=== PATIENT | female | born 1970 | race African-American/Black ===

== ENCOUNTER 2016-09-10 12:14 | Emergency (ER) | payer OTHER ==
[2016-09-10 12:18] VITALS: BP 118/79; PULSE 79; TEMP 98.2; BMI 33.0
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
== END 2016-09-10 14:49 | disposition home or self-care (01) ==
LOC: JERFT 12:14
DX: S49.82XA Other specified injuries of left shoulder and upper arm, initial encounter (principal); W03.XXXA Other fall on same level due to collision with another person, initial encounter; Y93.F9 Activity, other caregiving; Y92.118 Other place in children's home and orphanage as the place of occurrence of the external cause; Y99.0 Civilian activity done for income or pay
CPT/HCPCS: 73030-TC-LT; 84703; 99281-25

== ENCOUNTER 2017-02-13 19:40 | Emergency (ER) | payer OTHER ==
[2017-02-13 19:47] VITALS: BP 113/76; PULSE 88; TEMP 98.9; BMI 34.1
[2017-02-13] MEDS ORDERED: ALBUTEROL SO4 2.5/IPRATROPIUM 0.5 INH SOL 3 ML VIAL.NEB. NEB ONE ×2 (20:35→20:44)
--- NOTE | 2017-02-13 20:35 | PDOC ---
History of Present Illness - General History Source: Patient Exam Limitations: No Limitations - History of Present Illness Initial Comments: 02/13/17 21:18 Patient is a 46 year old female with a significant past medical history of diabetes, HTN, who presents to the ED with complaints of coughing that began 2 weeks ago. Patient reports coughing began two weeks ago and has subsided slightly. She states that this is the first time experiencing this in 5 years. She reports using her asthma pump with benylin with minimal relief. Patient reports albuterol offers slightly more relief but still minimal. She reports productive cough at night with production of phlegm but unaware of the coloration of the phlegm. Patient reports intermittent episodes of chest pain and SOB secondary to coughing that intensifies when walking. Denies abdominal pain. Denies fevers, chills. Denies contact with sick individuals. Denies insulin. Denies any other symptoms. Allergies Social history: No smoking. No alcohol. No illicit drugs. Surgery History: Cholecystectomy PMD: Dr. Plascencia <Medardo Ramírez - Last Filed: 02/13/17 21:18> <Radha Rojas - Last Filed: 02/13/17 22:39> - General Chief Complaint: Respiratory Stated Complaint: SHORTNESS OF BREATH Time Seen by Provider: 02/13/17 20:26 Past History <Medardo Ramírez - Last Filed: 02/13/17 21:18> - Past Medical History Diabetes: Yes HTN: Yes - Surgical History Cholecystectomy: Yes GI Surgery: Yes (LAP BAND) - Suicide/Smoking/Psychosocial Hx Smoking Status: No Smoking History: Never smoked Number of Cigarettes Smoked Daily: 0 Hx Alcohol Use: No Drug/Substance Use Hx: No Substance Use Type: None <Radha Rojas - Last Filed: 02/13/17 22:39> - Past Medical History Allergies/Adverse Reactions: Allergies Allergy/AdvReac Type Severity Reaction Status Date / Time No Known Allergies Allergy Verified 02/13/17 19:47 Home Medications: Ambulatory Orders Acetaminophen W/ Codeine #3 [Tylenol # 3 -] 1 tab PO Q6H PRN #7 tablet MDD 2 tabs 02/13/17 Albuterol Sulfate Inhaler - [Ventolin HFA Inhaler -] 2 inh PO Q4H #1 inh Empagliflozin [Jardiance] 10 mg PO DAILY 02/13/17 Inhaler, Assist Devices [Space Chamber Plus] 1 each MC TID #1 spacer 02/13/17 Losartan/Hydrochlorothiazide [Losartan-Hctz 50-12.5 mg Tab] 1 each PO DAILY Review of Systems - Review of Systems Able to Perform ROS?: Yes Comments:: 02/13/17 21:18 GENERAL/CONSTITUTIONAL: No fever or chills. No weakness. HEAD, EYES, EARS, NOSE AND THROAT: No change in vision. No ear pain or discharge. No sore throat. GASTROINTESTINAL: No nausea, vomiting, diarrhea or constipation. GENITOURINARY: No dysuria, frequency, or change in urination. CARDIOVASCULAR: +Chest pain +SOB. RESPIRATORY: +Coughing No wheezing, or hemoptysis. MUSCULOSKELETAL: No joint or muscle swelling or pain. No neck or back pain. SKIN: No rash NEUROLOGIC: No headache, vertigo, loss of consciousness, or change in strength/ sensation. ENDOCRINE: No increased thirst. No abnormal weight change. HEMATOLOGIC/LYMPHATIC: No anemia, easy bleeding, or history of blood clots. ALLERGIC/IMMUNOLOGIC: No hives or skin allergy All Other Systems: Reviewed and Negative <Medardo Ramírez - Last Filed: 02/13/17 21:18> *Physical Exam - Vital Signs Last Vital Signs Temp Pulse Resp BP Pulse Ox 98.9 F 88 18 113/76 99 02/13/17 19:43 02/13/17 19:43 02/13/17 19:43 02/13/17 19:43 02/13/17 19:43 - Physical Exam Comments: 02/13/17 21:19 GENERAL: Awake, alert, and fully oriented, in no acute distress HEAD: No signs of trauma EYES: PERRLA, EOMI, sclera anicteric, conjunctiva clear ENT: +Dry cough Auricles normal inspection, hearing grossly normal, nares patent, oropharynx clear without exudates. Moist mucosa NECK: Normal ROM, supple, no lymphadenopathy, JVD, or masses LUNGS: +soft and expiratory wheeze. Breath sounds equal, clear to auscultation bilaterally. no crackles HEART: Regular rate and rhythm, normal S1 and S2, no murmurs, rubs or gallops ABDOMEN: Soft, nontender, normoactive bowel sounds. No guarding, no rebound. No masses EXTREMITIES: Normal range of motion, no edema. No clubbing or cyanosis. No cords, erythema, or tenderness NEUROLOGICAL: Cranial nerves II through XII grossly intact. Normal speech, normal gait SKIN: Warm, Dry, normal turgor, no rashes or lesions noted. <Medardo Ramírez - Last Filed: 02/13/17 21:18> - Vital Signs Last Vital Signs Temp Pulse Resp BP Pulse Ox 98.9 F 88 18 113/76 99 02/13/17 19:43 02/13/17 19:43 02/13/17 19:43 02/13/17 19:43 02/13/17 19:43 <Radha Rojas - Last Filed: 02/13/17 22:39> ED Treatment Course - ADDITIONAL ORDERS Additional order review: Laboratory Results 02/13/17 20:53 Urine HCG, Qual Negative - Medications Given in the ED: ED Medications Discontinued Medications Generic Name Dose Route Start Last Admin Trade Name Raheel PRN Reason Stop Dose Admin Albuterol/Ipratropium 1 amp 02/13/17 20:35 02/13/17 20:48 Duoneb - NEB 02/13/17 20:36 1 amp ONCE ONE Administration <Medardo Ramírez - Last Filed: 02/13/17 21:18> Medical Decision Making - Medical Decision Making 02/13/17 22:32 a/p: 46yo female with RAD and viral URI -nontoxic in appearance -will obtain xray and give nebs -will monitor and reassess 02/13/17 22:32 re-eval: pt feeling much better. No wheezing at this time. No chest tightness. Will give Rx for albuterol for home. Will give spacer. Pt states she will follow up with her PMD and verbalizes all reasons to return to the ED. Pt stable for d/c to home at this time. Answered all questions. <Radha Rojas - Last Filed: 02/13/17 22:39> *DC/Admit/Observation/Transfer - Attestations Scribe Attestion: 02/13/17 21:20 Documentation prepared by Medardo Ramírez, acting as medical practice administrator for Radha Rojas DO, MD/. <Medardo Ramírez - Last Filed: 02/13/17 21:18> - Discharge Dispostion Admit: No - Attestations Physician Attestion: 02/13/17 22:39 I, Dr. Radha Rojas DO, attest that this document has been prepared under my direction and personally reviewed by me in its entirety. I further attest, that it accurately reflects all work, treatment, procedures and medical decision -making performed by me. <Radha Rojas - Last Filed: 02/13/17 22:39> Diagnosis at time of Disposition: Reactive airway disease, URI (upper respiratory infection) - Discharge Dispostion Disposition: HOME Condition at time of disposition: Stable - Prescriptions Prescriptions: Inhaler, Assist Devices [Space Chamber Plus] 1 each MC TID #1 spacer Acetaminophen W/ Codeine #3 [Tylenol # 3 -] 1 tab PO Q6H PRN #7 tablet MDD 2 tabs PRN Reason: Cough Albuterol Sulfate Inhaler - [Ventolin HFA Inhaler -] 2 inh PO Q4H #1 inh - Referrals Referrals: Jj Plascencia MD [Primary Care Provider] - - Patient Instructions Printed Discharge Instructions: DI for Acute Bronchitis Additional Instructions: Please take all meds as prescribed. Please follow up with your PMD. Please return to the ED with any further concerns. Please do not drive or operate heavy machinery while taking the tylenol #3
== END 2017-02-13 22:50 | disposition home or self-care (01) ==
LOC: JER 19:40
PROC: 3E0F7GC Introduction of Other Therapeutic Substance into Respiratory Tract, Via Natural or Artificial Opening (ICD-10-PCS; principal; 2017-02-13)
DX: J45.998 Other asthma (principal); J06.9 Acute upper respiratory infection, unspecified; I10 Essential (primary) hypertension; E11.9 Type 2 diabetes mellitus without complications
CPT/HCPCS: 71020-TC; 84703; 99281-25

== ENCOUNTER 2017-03-18 17:31 | Emergency (ER) | payer OTHER ==
[2017-03-18 17:47] VITALS: BP 130/80; PULSE 85; TEMP 98.7; BMI 33.0
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
== END 2017-03-18 20:05 | disposition home or self-care (01) ==
LOC: JERFT 17:31
DX: S89.81XA Other specified injuries of right lower leg, initial encounter (principal); X50.1XXA Overexertion from prolonged static or awkward postures, initial encounter; Y93.F9 Activity, other caregiving; Y92.118 Other place in children's home and orphanage as the place of occurrence of the external cause; Y99.0 Civilian activity done for income or pay; I10 Essential (primary) hypertension; E11.9 Type 2 diabetes mellitus without complications; Z79.84 Long term (current) use of oral hypoglycemic drugs; Z98.84 Bariatric surgery status; Z90.49 Acquired absence of other specified parts of digestive tract
CPT/HCPCS: 73562-TC-RT; 73590-TC-RT; 73610-TC-RT; 73630-TC-RT; 99281-25

== ENCOUNTER 2017-03-25 05:07 | Day surgery (SDC) | payer OTHER ==
[2017-03-23 17:12] VITALS: BMI 33.0
--- NOTE | 2017-03-25 09:01 | HP ---
Satellite [facility] - Chief Complaint Chief Complaint: right achilles tendon rupture - Past Medical History Allergies/Adverse Reactions: Allergies Allergy/AdvReac Type Severity Reaction Status Date / Time No Known Allergies Allergy Verified 03/25/17 07:57 ...LMP: 03/15/17 - Current Medications Current Medications: Home Medications Medication Instructions Recorded Empagliflozin [Jardiance] 10 mg PO DAILY 02/13/17 Losartan/Hydrochlorothiazide 1 each PO DAILY 02/13/17 [Losartan-Hctz 50-12.5 mg Tab] Albuterol Sulfate Inhaler - 2 inh PO Q4H PRN 03/23/17 [Ventolin HFA Inhaler -] Oxycodone HCl/Acetaminophen 1 tab PO Q6H #40 tablet MDD 4 03/25/17 [Percocet 5-325 mg Tablet] Satellite Physical Exam - Physical Examination Vital Signs: Vital Signs Period Temp Pulse Resp BP Sys/Ayala Pulse Ox Last 24 Hr 98.3 F 82 16 119/82 97 General Appearance: Well Nourished, Well Developed, Alert & Oriented x3 ENT: Clear Lung: Normal air movement Heart: Regular rate & rhythm Extremities: Other (right ankle- + swelling, + defect in achilles, + solis, nvi) Neurological: Intact, Alert, Oriented Satellite Impression/Plan - Impression/Plan Impression: right achilles tendon rupture Operative Procedure: right achilles tendon repair Date to be Performed: 03/25/17
[2017-03-25] MEDS ORDERED: MIDAZOLAM HCL 2 MG/2 ML SINGLE DOSE VIAL ONE ×3 (09:29→09:54)
[2017-03-25] MEDS ORDERED: ceFAZolin SODIUM 1 GM VIAL IVPB ONE (09:37)
[2017-03-25] MEDS ORDERED: PROPOFOL 20 ML ONE (09:50)
--- NOTE | 2017-03-25 10:51 | OP ---
Operative Note - Note: Operative Date: 03/25/17 ([facility]) Pre-Operative Diagnosis: right achilles tendon rupture Operation: right achilles tendon repair, tendon harvest (plantaris) Post-Operative Diagnosis: Same as Pre-op Surgeon: Jeremy Gutierrez Service Station Attendant: Bill Martines Anesthesiologist/PIPE FITTER FIRE SPRINKLER SYSTEMS: Maria Luisa Roque MD Anesthesia: Spinal, Local Estimated Blood Loss (mls): 5 (tourniquet) Operative Report Dictated: Yes
[2017-03-25] MEDS ORDERED: PROMETHAZINE HCL 25 MG/1 ML VIAL IVPUSH PRN (10:57)
[2017-03-25] MEDS ORDERED: oxyCODONE HCL 5 MG TABLET PO PRN (10:57)
[2017-03-25] MEDS ORDERED: ONDANSETRON 4 MG/2 ML VIAL IVPUSH PRN (10:57)
[2017-03-25] MEDS ORDERED: LACTATED RINGERS SOLUTION 1,000 ML IV SCH (11:00)
[2017-03-25] MEDS ORDERED: CEFAZOLIN 1 GM in DEXTROSE 5%-WATER - 50 ML IVPB ONE (12:00)
--- NOTE | 2017-03-25 12:14 | OP ---
DATE OF OPERATION: 03/25/2017 PREOPERATIVE DIAGNOSIS: Right Achilles tendon rupture. POSTOPERATIVE DIAGNOSIS: Right Achilles tendon rupture. PROCEDURE: Right Achilles tendon repair with plantaris tendon harvesting and augmentation. SURGICAL ATTENDING: Jeremy Gutierrez MD LATIN PROFESSOR: MELITA Palacios ANESTHESIA: Spinal. CLOSURE: No. 2 FiberWire for tendon, 3-0 Vicryl for plantaris, 2-0 Vicryl subcutaneous, and raf for skin. ESTIMATED BLOOD LOSS: Negligible. TOURNIQUET TIME: 44 minutes. COMPLICATIONS: None. CONDITION: To recovery room in stable condition. DESCRIPTION OF OPERATIVE PROCEDURE: Patient was taken to the operating room on March 25, 2017. IV Kefzol was administered prophylactically prior to the case. Spinal anesthesia was administered by the anesthesiologist. Patient was placed in the prone position with all prominences well padded. A well-padded pneumatic tourniquet away from the fibular head was applied. The right lower extremity was prepped and draped in the usual sterile fashion. Leg was exsanguinated with an Esmarch bandage, and tourniquet was inflated to 250 mmHg. A curved longitudinal incision with the distal limb laterally and the proximal limb medially was incised over the Achilles tendon rupture. A full-thickness dissection was carried down to the level of the tendon. The 2 ends were immobilized with blunt dissection. The fascia on the floor of the Achilles tendon was opened to aid in bringing blood supply to the region for later healing. No. 2 FiberWire sutures were weaved up and down the sides of the tendon in a locking baseball stitch fashion achieving excellent computer systems designer on the tissue both proximally and distally. The proximal portion was found to be very close to the musculotendinous junction, but we were able to mobilize this sufficiently and get a good enough bite on the tendinous structure. With the ankle in equinus position, the sutures were sutured to one another achieving a good end-to-end repair. Due to the fact that tendon was very small, I felt that augmentation was necessary. The plantaris tendon, which was clearly visualized and devoid of soft tissue after dissection, was harvested most proximally and distally. This tendon was weaved back and forth through the repair adding strength and collagen to aid in healing. The incision was irrigated out, copious amount of irrigation. The subcutaneous tissue was closed with 2-0 Vicryl suture, then, raf for skin. Sterile pressure dressing followed by a equinus splint was applied. Tourniquet was deflated. Total tourniquet time was about approximately 44 minutes. Yariel [id number]
[2017-03-25] MEDS ORDERED: oxyCODONE HCL 5 MG TABLET ONE (14:29)
[2017-03-25] MEDS ORDERED: ceFAZolin SODIUM 1 GM VIAL ONE (14:52)
[2017-03-25 18:56] VITALS: BP 123/75; PULSE 90; TEMP 98.4
== END 2017-03-25 16:30 | disposition home or self-care (01) ==
LOC: JASU-SURG 05:07
PROVIDERS: ATTEND Orthopaedic Surgery
PROC: 0LUN07Z Supplement Right Lower Leg Tendon with Autologous Tissue Substitute, Open Approach (ICD-10-PCS; principal; 2017-03-25 08:45)
DX: S86.011A Strain of right Achilles tendon, initial encounter (principal); X58.XXXA Exposure to other specified factors, initial encounter; Y93.9 Activity, unspecified; Y92.9 Unspecified place or not applicable; Y99.9 Unspecified external cause status
CPT/HCPCS: 84703; 90853; 94760

== ENCOUNTER 2017-05-26 11:27 | Emergency (ER) | payer SELFPAY ==
[2017-05-26 11:31] VITALS: BP 119/79; PULSE 91; TEMP 99.4; BMI 33.0
--- NOTE | 2017-05-26 13:53 | PDOC ---
History of Present Illness - General History Source: Patient Exam Limitations: No Limitations - History of Present Illness Initial Comments: 05/26/17 14:17 The patient is a 46 year old female, with a significant past medical history of HTN, vertigo, and DM, who presents to the emergency department with lightheadedness and dizziness. The patient reports having sensations of the room spinning since Thursday. She reports having previous episodes of vertigo. She denies recent fevers, chills, headache. She denies recent nausea, vomit, diarrhea or constipation. She denies recent dysuria, frequency, urgency or hematuria. She denies recent chest pain or shortness of breath. Allergies: NKA Past surgical history: None reported. Social history: Nonsmoker. Occasional EtOH use and denies recreational drug use. Primary Care Physician: <Bill Shin - Last Filed: 05/26/17 14:21> <Heidi Ochoa - Last Filed: 05/30/17 10:30> - General Chief Complaint: Lightheaded Stated Complaint: LIGHTHEADED Time Seen by Provider: 05/26/17 13:53 Past History <Bill Shin - Last Filed: 05/26/17 14:21> - Past Medical History Anemia: No Asthma: Yes (seasonal) Cancer: No Cardiac Disorders: No CVA: No COPD: No CHF: No DVT: No Dementia: No Diabetes: Yes GI Disorders: No Disorders: No HTN: Yes Hypercholesterolemia: No Liver Disease: No Seizures: No Thyroid Disease: No Other medical history: VERTIGO - Surgical History Abdominal Surgery: Yes (LAP BAND) Cholecystectomy: Yes (2014) GI Surgery: Yes (LAP BAND) - Suicide/Smoking/Psychosocial Hx Smoking Status: No Smoking History: Never smoked Have you smoked in the past 12 months: No Number of Cigarettes Smoked Daily: 0 Information on smoking cessation initiated: No Hx Alcohol Use: Yes (SOCIAL) Drug/Substance Use Hx: No Substance Use Type: None <Heidi Ochoa - Last Filed: 05/30/17 10:30> - Past Medical History Allergies/Adverse Reactions: Allergies Allergy/AdvReac Type Severity Reaction Status Date / Time No Known Allergies Allergy Verified 05/26/17 11:28 Home Medications: Ambulatory Orders Empagliflozin [Jardiance] 10 mg PO DAILY 02/13/17 Losartan/Hydrochlorothiazide [Losartan-Hctz 50-12.5 mg Tab] 1 each PO DAILY Albuterol Sulfate Inhaler - [Ventolin HFA Inhaler -] 2 inh PO Q4H PRN 03/23/17 Oxycodone HCl/Acetaminophen [Percocet 5-325 mg Tablet] 1 tab PO Q6H #40 tablet MDD 4 03/25/17 Meclizine HCl [Antivert -] 25 mg PO QID #120 tablet 05/26/17 Review of Systems - Review of Systems Able to Perform ROS?: Yes Comments:: 05/26/17 14:15 GENERAL/CONSTITUTIONAL: No fever or chills. No weakness. HEAD, EYES, EARS, NOSE AND THROAT: No change in vision. No ear pain or discharge. No sore throat. CARDIOVASCULAR: No chest pain or shortness of breath. RESPIRATORY: No cough, wheezing, or hemoptysis. GASTROINTESTINAL: No nausea, vomiting, diarrhea or constipation. GENITOURINARY: No dysuria, frequency, or change in urination. MUSCULOSKELETAL: No joint or muscle swelling or pain. No neck or back pain. SKIN: No rash NEUROLOGIC: +lightheadedness and vertigo. No headache, loss of consciousness, or change in strength/sensation. ENDOCRINE: No increased thirst. No abnormal weight change. HEMATOLOGIC/LYMPHATIC: No anemia, easy bleeding, or history of blood clots. ALLERGIC/IMMUNOLOGIC: No hives or skin allergy. <Bill Shin - Last Filed: 05/26/17 14:21> *Physical Exam - Vital Signs Last Vital Signs Temp Pulse Resp BP Pulse Ox 99.4 F 91 H 18 119/79 100 05/26/17 11:29 05/26/17 11:29 05/26/17 11:29 05/26/17 11:29 05/26/17 11:29 - Physical Exam Comments: 05/26/17 14:17 GENERAL: Awake, alert, and fully oriented, in no acute distress HEAD: No signs of trauma EYES: PERRLA, EOMI, sclera anicteric, conjunctiva clear ENT: Auricles normal inspection, hearing grossly normal, nares patent, oropharynx clear without exudates. Dry mucosa NECK: Normal ROM, supple, no lymphadenopathy, JVD, or masses LUNGS: Breath sounds equal, clear to auscultation bilaterally. No wheezes, and no crackles HEART: Regular rate and rhythm, normal S1 and S2, no murmurs, rubs or gallops ABDOMEN: Soft, nontender, normoactive bowel sounds. No guarding, no rebound. No masses EXTREMITIES: Normal range of motion, no edema. No clubbing or cyanosis. No cords, erythema, or tenderness NEUROLOGICAL: Cranial nerves II through XII grossly intact. Normal speech, normal gait SKIN: Warm, Dry, normal turgor, no rashes or lesions noted. <Bill Shin - Last Filed: 05/26/17 14:21> - Vital Signs Last Vital Signs Temp Pulse Resp BP Pulse Ox 99.4 F 91 H 18 119/79 100 05/26/17 11:29 05/26/17 11:29 05/26/17 11:29 05/26/17 11:29 05/26/17 11:29 <Heidi Ochoa - Last Filed: 05/30/17 10:30> Medical Decision Making - Medical Decision Making Pt has history of vertigo in past, symptoms are similar today. She presents to ED because she does not have meclizine at home and was not aware that it is available over the counter. No neuro deficits on exam. I offered IV fluids in ED , as she appeared volume-depleted, however, she states she prefers to take meclizine and do oral rehydration at home. Rx written and transmitted to her pharmacy. Stable for DC home. <Heidi Ochoa - Last Filed: 05/30/17 10:30> *DC/Admit/Observation/Transfer - Attestations Scribe Attestion: 05/26/17 14:15 Documentation prepared by Bill Shin, acting as medical cost consultant for Heidi Ochoa MD, MD/DO. <Bill Shin - Last Filed: 05/26/17 14:21> - Discharge Dispostion Admit: No <Heidi Ochoa - Last Filed: 05/30/17 10:30> Diagnosis at time of Disposition: Vertigo - Discharge Dispostion Disposition: HOME Condition at time of disposition: Stable - Prescriptions Prescriptions: Meclizine HCl [Antivert -] 25 mg PO QID #120 tablet - Referrals Referrals: Temo,Jj N., MD [Primary Care Provider] - - Patient Instructions Printed Discharge Instructions: DI for Vertigo - Post Discharge Activity
[2017-05-26] MEDS ORDERED: MECLIZINE HCL 25 MG TABLET (FP) PO ONE (14:20)
[2017-05-26] MEDS ORDERED: MECLIZINE HCL 25 MG TABLET (FP) ONE (14:26)
== END 2017-05-26 14:34 | disposition home or self-care (01) ==
LOC: JER 11:27
DX: R42 Dizziness and giddiness (principal); I10 Essential (primary) hypertension; E11.9 Type 2 diabetes mellitus without complications; Z98.84 Bariatric surgery status
CPT/HCPCS: 99282-25

== ENCOUNTER 2018-12-30 20:59 | Emergency (ER) | payer OTHER | END 2018-12-31 03:01 | disposition home or self-care (01) | LOC: JER 12-31 03:01 ==

== ENCOUNTER 2019-07-20 11:41 | Emergency (ER) | payer OTHER ==
[2019-07-20 11:48] VITALS: BP 135/89; PULSE 77; TEMP 98.3; BMI 33.0
--- NOTE | 2019-07-20 12:10 | PDOC ---
History of Present Illness - General Chief Complaint: Cold Symptoms Stated Complaint: COLD SYMPTOMS Time Seen by Provider: 07/20/19 11:49 - History of Present Illness Initial Comments: 07/20/19 12:09 49-year-old female with past medical history of diabetes and hypertension presents for evaluation of flulike symptoms x1 day Past History - Past Medical History Allergies/Adverse Reactions: Allergies Allergy/AdvReac Type Severity Reaction Status Date / Time No Known Allergies Allergy Verified 07/20/19 11:48 Home Medications: Ambulatory Orders Empagliflozin [Jardiance] 10 mg PO DAILY 02/13/17 Losartan/Hydrochlorothiazide [Losartan-Hctz 50-12.5 mg Tab] 1 each PO DAILY Albuterol Sulfate Inhaler - [Ventolin HFA Inhaler -] 2 inh PO Q4H PRN 03/23/17 Oxycodone HCl/Acetaminophen [Percocet 5-325 mg Tablet] 1 tab PO Q6H #40 tablet MDD 4 03/25/17 Meclizine HCl [Antivert -] 25 mg PO QID #120 tablet 05/26/17 Oseltamivir Phosphate [Tamiflu] 75 mg PO BID #10 capsule 07/20/19 Anemia: No Asthma: Yes (seasonal) Cancer: No Cardiac Disorders: No CVA: No COPD: No CHF: No DVT: No Dementia: No Diabetes: Yes GI Disorders: No Disorders: No HTN: Yes Hypercholesterolemia: No Liver Disease: No Seizures: No Thyroid Disease: No - Surgical History Abdominal Surgery: Yes (LAP BAND) Cholecystectomy: Yes (2014) GI Surgery: Yes (LAP BAND) - Psycho Social/Smoking Cessation Hx Smoking Status: No Smoking History: Never smoked Have you smoked in the past 12 months: No Number of Cigarettes Smoked Daily: 0 Information on smoking cessation initiated: No Hx Alcohol Use: No Drug/Substance Use Hx: No Substance Use Type: None Review of Systems - Review of Systems Constitutional: Yes: Chills, Fever, Malaise, Night Sweats HEENTM: Yes: Nose Congestion Respiratory: Yes: Cough *Physical Exam - Vital Signs Last Vital Signs Temp Pulse Resp BP Pulse Ox 98.3 F 77 19 135/89 99 07/20/19 11:46 07/20/19 11:46 07/20/19 11:46 07/20/19 11:46 07/20/19 11:46 - Physical Exam 07/20/19 12:09 GENERAL: The patient is awake, alert, and fully oriented, in no acute distress. HEAD: Normal with no signs of trauma. EYES: sclera anicteric, conjunctiva clear. ENT: Ears normal tympanic membranes normal oropharynx clear uvula midline NECK: Normal range of motion LUNGS: Breath sounds equal, clear to auscultation bilaterally. No wheezes, and no crackles. HEART: S1 and S2 without murmur, rub or gallop. ABDOMEN: Soft, nontender, normoactive bowel sounds. No guarding, no rebound. No masses. EXTREMITIES: Normal range of motion, no edema. No clubbing or cyanosis. No cords, erythema, or tenderness. NEUROLOGICAL: Cranial nerves II through XII grossly intact. PSYCH: Normal mood, normal affect. SKIN: Warm, Dry, normal turgor, no rashes or lesions noted. Medical Decision Making - Medical Decision Making 07/20/19 12:09 We will treat for flu based on symptoms Discharge - Discharge Information Problems reviewed: Yes Clinical Impression/Diagnosis: Influenza Condition: Stable Disposition: HOME - Admission No - Additional Discharge Information Prescriptions: Oseltamivir Phosphate [Tamiflu] 75 mg PO BID #10 capsule - Follow up/Referral Referrals: Pam Muñoz MD [Staff Physician] - - Patient Discharge Instructions Additional Instructions: Tylenol Motrin as directed for fever and body aches. Return to the emergency room for worsening symptoms and without fail follow-up with your primary care physician in 1 to 2 days for further evaluation and treatment options. Please take the Tamiflu as directed. - Post Discharge Activity Work/Back to School Note: Back to Work
== END 2019-07-20 13:03 | disposition home or self-care (01) ==
LOC: JERFT 11:41
DX: J11.1 Influenza due to unidentified influenza virus with other respiratory manifestations (principal); Z98.84 Bariatric surgery status; J30.2 Other seasonal allergic rhinitis; E11.9 Type 2 diabetes mellitus without complications; I10 Essential (primary) hypertension
CPT/HCPCS: 99283-25

== ENCOUNTER 2020-12-09 13:59 | Emergency (ER) | payer OTHER ==
[2020-12-09 14:10] VITALS: TEMP 98.2; BMI 33.0
[2020-12-09] MEDS ORDERED: MECLIZINE HCL 25 MG TABLET (FP) PO ONE (15:13)
[2020-12-09] MEDS ORDERED: MECLIZINE HCL 25 MG TABLET (FP) ONE (15:20)
[2020-12-09 15:25] LABS: BASO % 1.3 % (0-2.0); EOS % 1.5 % (0-4.5); HEMATOCRIT 40.1 % (32.4-45.2); HEMOGLOBIN 13.6 GM/dL (10.7-15.3); LYMPH % 27.6 % (8-40); MCH 30.4 pg (25.7-33.7); MEAN CELL VOLUME 89.4 fl (80-96); MEAN PLT VOLUME 9.4 fl (7.5-11.1); MONO % 6.8 % (3.8-10.2); NEUT % 62.8 % (42.8-82.8); PLATELET COUNT 186 10^3/uL (134-434); RBC 4.48 M/mm3 (3.60-5.2); RDW 13.9 % (11.6-15.6)
[2020-12-09] MEDS ORDERED: SODIUM CHLORIDE 0.9% 500 ML INFUS.BAG IV ONE (15:31)
[2020-12-09 15:46] LABS: CHLORIDE 107 mmol/L (98-107); SODIUM 143 mmol/L (136-145)
[2020-12-09 15:47] LABS: CALCIUM 8.3 mg/dL (8.5-10.1)
[2020-12-09 15:49] LABS: ALBUMIN 3.4 g/dl (3.4-5.0); ANION GAP 9 MMOL/L (8-16); BLOOD UREA NITROGEN 7.6 mg/dL (7-18); CO2 26 mmol/L (21-32); GLUCOSE,RANDOM 157 mg/dL (74-106)
[2020-12-09 15:52] LABS: CREATININE 0.8 mg/dL (0.55-1.3); SGOT/AST 11 U/L (15-37); SGPT/ALT 19 U/L (13-61)
[2020-12-09 15:54] LABS: BILIRUBIN,TOTAL 0.4 mg/dL (0.2-1); TOT PROT 6.8 g/dl (6.4-8.2)
[2020-12-09 15:55] LABS: ALK PHOS 84 U/L (45-117)
[2020-12-09 16:28] VITALS: BP 128/85; PULSE 71
== END 2020-12-09 16:47 | disposition home or self-care (01) ==
LOC: JER 13:59
DX: R42 Dizziness and giddiness (principal)
CPT/HCPCS: 36415; 71046-TC-FY; 80053; 82550; 84484; 85025; 93005; 93010; 99284-25

== ENCOUNTER 2021-12-20 04:09 | Day surgery (SDC) | payer OTHER ==
[2021-12-18 11:58] VITALS: BMI 32.6
[2021-12-20] MEDS ORDERED: LIDOCAINE HCL/PF 1% SDV 5ML VIAL ONE (07:27)
[2021-12-20] MEDS ORDERED: BUPIVACAINE HCL/PF 0.5% (5MG/ML) 10 ML VIAL ONE (07:27)
[2021-12-20] MEDS ORDERED: BUPIVACAINE HCL/PF 0.5% (5 MG/ML) 30 ML VIAL IJ ONE (12:12)
[2021-12-20 12:46] VITALS: BP 127/81; PULSE 84; RESP 16; TEMP 98.2
== END 2021-12-20 13:15 | disposition home or self-care (01) ==
LOC: JASU-SURG 04:09
PROVIDERS: ATTEND Pain Medicine Pain Medicine
PROC: 3E0T33Z Introduction of Anti-inflammatory into Peripheral Nerves and Plexi, Percutaneous Approach (ICD-10-PCS; 2021-12-20)
PROC: 3E0T3BZ Introduction of Anesthetic Agent into Peripheral Nerves and Plexi, Percutaneous Approach (ICD-10-PCS; principal; 2021-12-20 12:15)
DX: M47.812 Spondylosis without myelopathy or radiculopathy, cervical region (principal)
CPT/HCPCS: 76000-TC-FY; 81025

== ENCOUNTER → 2022-01-13 | Day surgery (SDC) | payer OTHER | END | disposition home or self-care (01) | LOC: JRADIR 10:19 | PROVIDERS: ATTEND Internal Medicine Endocrinology, Diabetes & Metabolism | PROC: 0G9G3ZX Drainage of Left Thyroid Gland Lobe, Percutaneous Approach, Diagnostic (ICD-10-PCS; principal; 2022-01-13) | DX: E04.1 Nontoxic single thyroid nodule (principal) | CPT/HCPCS: 10005; 76942; 88173; 88305-TC ==

== ENCOUNTER 2022-01-17 04:10 | Day surgery (SDC) | payer OTHER ==
[2022-01-10 17:47] VITALS: BMI 33.2
[2022-01-17] MEDS ORDERED: BUPIVACAINE HCL/PF 0.5% (5MG/ML) 10 ML VIAL ONE (07:13)
[2022-01-17] MEDS ORDERED: LIDOCAINE HCL/PF 1% SDV 5ML VIAL ONE (07:13)
[2022-01-17] MEDS ORDERED: BUPIVACAINE HCL/PF 0.5% (5MG/ML) 10 ML VIAL IJ ONE (10:35)
[2022-01-17 11:38] VITALS: BP 149/92; PULSE 73; RESP 16; TEMP 98.9
== END 2022-01-17 11:43 | disposition home or self-care (01) ==
LOC: JASU-SURG 04:10
PROVIDERS: ATTEND Pain Medicine Pain Medicine
PROC: BR14YZZ Fluoroscopy of Cervical Facet Joint(s) using Other Contrast (ICD-10-PCS; 2022-01-17)
PROC: 3E0T3BZ Introduction of Anesthetic Agent into Peripheral Nerves and Plexi, Percutaneous Approach (ICD-10-PCS; principal; 2022-01-17 10:45)
DX: M47.892 Other spondylosis, cervical region (principal)
CPT/HCPCS: 76000-TC-FY; 81025

== ENCOUNTER 2022-02-14 05:25 | Day surgery (SDC) | payer OTHER ==
[2022-02-13 11:17] VITALS: BMI 33.2
[2022-02-14 10:30] VITALS: RESP 16
[2022-02-14] MEDS ORDERED: LIDOCAINE HCL 1% PRESERVATIVE FREE - 30ML VIAL IJ ONE ×2 (14:06→14:43)
[2022-02-14] MEDS ORDERED: LIDOCAINE HCL 2% (50ML VIAL) NR ONE ×2 (14:06→14:44)
[2022-02-14] MEDS ORDERED: BUPIVACAINE HCL/PF 0.5% (5 MG/ML) 30 ML VIAL IJ ONE ×2 (14:07→15:04)
[2022-02-14] MEDS ORDERED: DEXAMETHASONE SOD PHOSPHATE 10 MG/1 ML VIAL IVPUSH ONE ×2 (14:07→15:04)
[2022-02-14 16:05] VITALS: BP 139/83; PULSE 87; TEMP 97.5
== END 2022-02-14 15:56 | disposition home or self-care (01) ==
LOC: JASU-SURG 05:25
PROVIDERS: ATTEND Pain Medicine Pain Medicine
PROC: BR14YZZ Fluoroscopy of Cervical Facet Joint(s) using Other Contrast (ICD-10-PCS; 2022-02-14)
PROC: 3E0T3TZ Introduction of Destructive Agent into Peripheral Nerves and Plexi, Percutaneous Approach (ICD-10-PCS; principal; 2022-02-14 11:45)
DX: M47.812 Spondylosis without myelopathy or radiculopathy, cervical region (principal)
CPT/HCPCS: 76000-TC-FY; 81025; 82962; J1100

== ENCOUNTER 2022-03-21 04:10 | Day surgery (SDC) | payer OTHER ==
[2022-03-20 09:06] VITALS: BMI 33.2
[2022-03-21] MEDS ORDERED: LIDOCAINE HCL/PF 1% SDV 5ML VIAL ONE (07:18)
[2022-03-21] MEDS ORDERED: BUPIVACAINE HCL/PF 0.75% 10 ML VIAL ONE (07:18)
[2022-03-21] MEDS ORDERED: DEXAMETHASONE SOD PHOSPHATE 10 MG/1 ML VIAL ONE (07:19)
[2022-03-21] MEDS ORDERED: LIDOCAINE HCL/PF 2% SDV 5ML VIAL ONE (07:29)
[2022-03-21 07:44] VITALS: RESP 18
[2022-03-21] MEDS ORDERED: BUPIVACAINE HCL/PF 0.5% (5MG/ML) 10 ML VIAL IJ ONE (09:15)
[2022-03-21] MEDS ORDERED: DEXAMETHASONE SOD PHOSPHATE 4 MG/1 ML VIAL IM ONE (09:15)
[2022-03-21] MEDS ORDERED: LIDOCAINE HCL 1% PRESERVATIVE FREE - 30ML VIAL IJ ONE (09:15)
[2022-03-21] MEDS ORDERED: LIDOCAINE HCL/PF 2% SDV 5ML VIAL INF ONE (09:16)
[2022-03-21 12:24] VITALS: BP 106/72; PULSE 80; TEMP 97.8
== END 2022-03-21 10:10 | disposition home or self-care (01) ==
LOC: JASU-SURG 04:10
PROVIDERS: ATTEND Pain Medicine Pain Medicine
PROC: 3E0T3TZ Introduction of Destructive Agent into Peripheral Nerves and Plexi, Percutaneous Approach (ICD-10-PCS; principal; 2022-03-21 08:45)
PROC: BR14ZZZ Fluoroscopy of Cervical Facet Joint(s) (ICD-10-PCS; 2022-03-21 08:45)
DX: M47.812 Spondylosis without myelopathy or radiculopathy, cervical region (principal); I10 Essential (primary) hypertension; E11.9 Type 2 diabetes mellitus without complications
CPT/HCPCS: 76000-TC-FY; 81025; J1100

== ENCOUNTER 2022-06-12 08:53 | Emergency (ER) | payer OTHER ==
[2022-06-12 09:07] VITALS: BP 133/73; PULSE 86; RESP 18; TEMP 98.9; BMI 33.3
== END 2022-06-12 10:14 | disposition home or self-care (01) ==
LOC: JER 08:53
DX: U07.1 COVID-19 (principal); J01.10 Acute frontal sinusitis, unspecified
CPT/HCPCS: 0241U-QW; 99283-25

== ENCOUNTER 2022-10-28 17:21 | Emergency (ER) | payer OTHER ==
[2022-10-28 17:30] VITALS: BP 103/66; PULSE 88; RESP 16; TEMP 98.3; BMI 30.9
[2022-10-28] MEDS ORDERED: predniSONE 20 MG TABLET (UD) PO ONE (18:09)
[2022-10-28] MEDS ORDERED: predniSONE 20 MG TABLET (UD) ONE (18:10)
[2022-10-28] MEDS ORDERED: CYCLOBENZAPRINE HCL 10 MG TABLET (FP) PO ONE (19:23)
[2022-10-28] MEDS ORDERED: CYCLOBENZAPRINE HCL 10 MG TABLET (FP) ONE (19:25)
== END 2022-10-28 19:29 | disposition home or self-care (01) ==
LOC: JERFT 17:21
DX: M54.50 Low back pain, unspecified (principal)
CPT/HCPCS: 72131-TC; 99284-25

== ENCOUNTER 2022-11-11 04:49 | Day surgery (SDC) | payer OTHER ==
[2022-11-06 11:20] VITALS: BMI 29.5
[2022-11-11 15:08] VITALS: RESP 18
[2022-11-11 15:11] VITALS: BP 138/84; PULSE 81; TEMP 98
== END 2022-11-11 14:20 | disposition home or self-care (01) ==
LOC: JASU-ENDO 04:49
PROVIDERS: ATTEND Student in an Organized Health Care Education/Training Program
PROC: 0DBN8ZX Excision of Sigmoid Colon, Via Natural or Artificial Opening Endoscopic, Diagnostic (ICD-10-PCS; 2022-11-11)
PROC: 0DBP8ZX Excision of Rectum, Via Natural or Artificial Opening Endoscopic, Diagnostic (ICD-10-PCS; principal; 2022-11-11 12:30)
DX: Z12.11 Encounter for screening for malignant neoplasm of colon (principal); D12.5 Benign neoplasm of sigmoid colon; D12.8 Benign neoplasm of rectum; K57.30 Diverticulosis of large intestine without perforation or abscess without bleeding
CPT/HCPCS: 81025; 82962; 88305-TC

== ENCOUNTER 2023-04-07 04:44 | Day surgery (SDC) | payer OTHER ==
[2023-04-03 15:20] VITALS: BMI 29.5
[~2023-04-07 04:44] MED LIST: BUPIVACAINE HCL/PF 0.75% 10 ML VIAL NR ONE; LIDOCAINE HCL 1% PRESERVATIVE FREE - 30ML VIAL IJ ONE
[2023-04-07 06:41] VITALS: PULSE 71; RESP 20
[2023-04-07] MEDS ORDERED: BUPIVACAINE HCL/PF 0.75% 10 ML VIAL ONE (07:30)
[2023-04-07] MEDS ORDERED: LIDOCAINE HCL/PF 1% SDV 5ML VIAL ONE (07:30)
[2023-04-07] MEDS ORDERED: LIDOCAINE HCL 1% PRESERVATIVE FREE - 30ML VIAL IJ ONE (08:36)
[2023-04-07] MEDS ORDERED: BUPIVACAINE HCL/PF 0.75% 10 ML VIAL NR ONE (08:40)
[2023-04-07 10:03] VITALS: BP 127/87; TEMP 97.1
[2023-04-07] MEDS ORDERED: ACETAMINOPHEN 500 MG TABLET (FP) PO PRN (10:25)
== END 2023-04-07 10:10 | disposition home or self-care (01) ==
LOC: JASU-SURG 04:44
PROVIDERS: ATTEND Pain Medicine Pain Medicine
PROC: 3E0T33Z Introduction of Anti-inflammatory into Peripheral Nerves and Plexi, Percutaneous Approach (ICD-10-PCS; 2023-04-07)
PROC: 3E0T3BZ Introduction of Anesthetic Agent into Peripheral Nerves and Plexi, Percutaneous Approach (ICD-10-PCS; principal; 2023-04-07 08:15)
DX: M47.816 Spondylosis without myelopathy or radiculopathy, lumbar region (principal)
CPT/HCPCS: 76000-TC-FY; 81025

== ENCOUNTER 2023-05-12 04:26 | Day surgery (SDC) | payer OTHER ==
[2023-05-08 16:17] VITALS: BMI 29.5
[2023-05-12] MEDS ORDERED: BUPIVACAINE HCL/PF 0.75% 10 ML VIAL ONE (07:07)
[2023-05-12] MEDS ORDERED: LIDOCAINE HCL/PF 1% SDV 5ML VIAL ONE ×2 (07:07→07:08)
[2023-05-12 08:32] VITALS: RESP 20
[2023-05-12] MEDS ORDERED: LIDOCAINE HCL 1% PRESERVATIVE FREE - 30ML VIAL IJ ONE (09:40)
[2023-05-12] MEDS ORDERED: BUPIVACAINE HCL/PF 0.75% 10 ML VIAL NR ONE (09:40)
[2023-05-12 10:04] VITALS: BP 102/64; PULSE 82; TEMP 98.2
== END 2023-05-12 10:20 | disposition home or self-care (01) ==
LOC: JASU-SURG 04:26
PROVIDERS: ATTEND Pain Medicine Pain Medicine
PROC: 3E0T33Z Introduction of Anti-inflammatory into Peripheral Nerves and Plexi, Percutaneous Approach (ICD-10-PCS; 2023-05-12)
PROC: 3E0T3BZ Introduction of Anesthetic Agent into Peripheral Nerves and Plexi, Percutaneous Approach (ICD-10-PCS; principal; 2023-05-12 09:30)
DX: M47.816 Spondylosis without myelopathy or radiculopathy, lumbar region (principal)
CPT/HCPCS: 76000-TC-FY; 81025

== ENCOUNTER 2023-06-12 04:10 | Day surgery (SDC) | payer OTHER ==
[2023-06-09 13:57] VITALS: BMI 31.9
[2023-06-12] MEDS ORDERED: LIDOCAINE HCL/PF 1% SDV 5ML VIAL ONE ×2 (07:21→07:22)
[2023-06-12] MEDS ORDERED: LIDOCAINE HCL 1%, 10 MG/ML (20ML VIAL) ONE (07:21)
[2023-06-12] MEDS ORDERED: LIDOCAINE HCL/PF 2% SDV 5ML VIAL ONE (07:21)
[2023-06-12] MEDS ORDERED: BUPIVACAINE HCL/PF 0.75% 10 ML VIAL ONE (07:21)
[2023-06-12] MEDS ORDERED: DEXAMETHASONE SOD PHOSPHATE 10 MG/1 ML VIAL ONE (07:22)
[2023-06-12 10:24] VITALS: RESP 20; TEMP 97.3
[2023-06-12] MEDS ORDERED: LIDOCAINE HCL/PF 2% SDV 5ML VIAL INF ONE ×2 (11:29→11:40)
[2023-06-12] MEDS ORDERED: BUPIVACAINE HCL/PF 0.75% 10 ML VIAL PNB ONE ×2 (11:30→11:40)
[2023-06-12] MEDS ORDERED: LIDOCAINE HCL 1% PRESERVATIVE FREE - 30ML VIAL IJ ONE ×2 (11:31→11:40)
[2023-06-12 12:38] VITALS: BP 110/75; PULSE 86
[2023-06-12] MEDS ORDERED: ACETAMINOPHEN 500 MG TABLET (FP) PO PRN (13:27)
== END 2023-06-12 12:28 | disposition home or self-care (01) ==
LOC: JASU-SURG 04:10
PROVIDERS: ATTEND Pain Medicine Pain Medicine
PROC: 015B3ZZ Destruction of Lumbar Nerve, Percutaneous Approach (ICD-10-PCS; principal; 2023-06-12 12:45)
DX: M47.816 Spondylosis without myelopathy or radiculopathy, lumbar region (principal)
CPT/HCPCS: 76000-TC-FY; 81025; J1100

== ENCOUNTER 2023-07-03 14:12 | Emergency (ER) | payer OTHER ==
[2023-07-03 14:21] VITALS: BP 119/78; PULSE 95; RESP 16; TEMP 97.7; BMI 31.9
[2023-07-03] MEDS ORDERED: predniSONE 10 MG TABLET (UD) ONE (14:49)
[2023-07-03] MEDS ORDERED: predniSONE 20 MG TABLET (UD) ONE (14:49)
[2023-07-03] MEDS: predniSONE 20 MG TABLET (UD) PO ONE (15:00)
[2023-07-04] MEDS ORDERED: predniSONE 20 MG TABLET (UD) PO ONE (14:43)
== END 2023-07-03 15:14 | disposition home or self-care (01) ==
LOC: JERFT 14:12
DX: R21 Rash and other nonspecific skin eruption (principal); L23.9 Allergic contact dermatitis, unspecified cause
CPT/HCPCS: 99283-25

== ENCOUNTER 2023-07-21 04:12 | Day surgery (SDC) | payer OTHER ==
[2023-07-17 09:01] VITALS: BMI 31.9
[2023-07-21 07:52] VITALS: RESP 18
[2023-07-21] MEDS ORDERED: ACETAMINOPHEN 500 MG TABLET (FP) PO PRN (08:19)
[2023-07-21] MEDS ORDERED: LIDOCAINE HCL/PF 2% SDV 5ML VIAL ONE (08:38)
[2023-07-21] MEDS ORDERED: DEXAMETHASONE SOD PHOSPHATE 10 MG/1 ML VIAL ONE (08:39)
[2023-07-21] MEDS ORDERED: LIDOCAINE HCL/PF 1% SDV 5ML VIAL ONE (08:39)
[2023-07-21] MEDS ORDERED: BUPIVACAINE HCL/PF 0.75% 10 ML VIAL ONE (08:39)
[2023-07-21] MEDS: LIDOCAINE HCL 1% PRESERVATIVE FREE - 30ML VIAL IJ ONE (10:36)
[2023-07-21] MEDS: LIDOCAINE HCL/PF 2% SDV 5ML VIAL INF ONE ×2 (10:36)
[2023-07-21] MEDS: DEXAMETHASONE SOD PHOSPHATE 10 MG/1 ML VIAL IVPUSH ONE (10:38)
[2023-07-21] MEDS: BUPIVACAINE HCL/PF 0.75% 10 ML VIAL NR ONE (10:38)
[2023-07-21 11:01] VITALS: BP 108/68; PULSE 85; TEMP 98
== END 2023-07-21 11:57 | disposition home or self-care (01) ==
LOC: JASU-SURG 04:12
PROVIDERS: ATTEND Pain Medicine Pain Medicine
PROC: 015B3ZZ Destruction of Lumbar Nerve, Percutaneous Approach (ICD-10-PCS; principal; 2023-07-21 09:00)
DX: M47.816 Spondylosis without myelopathy or radiculopathy, lumbar region (principal)
CPT/HCPCS: 76000-TC-FY; 81025; J1100

== ENCOUNTER 2023-08-31 17:17 | Emergency (ER) | payer OTHER ==
[2023-08-31 17:28] VITALS: BP 127/81; PULSE 89; RESP 18; TEMP 98.4; BMI 32.1
== END 2023-08-31 20:20 | disposition home or self-care (01) ==
LOC: JER 17:17
DX: M71.22 Synovial cyst of popliteal space [Baker], left knee (principal); G89.29 Other chronic pain
CPT/HCPCS: 93971-TC; 99284-25

== ENCOUNTER 2023-09-21 09:41 | Emergency (ER) | payer OTHER ==
[2023-09-21 09:51] VITALS: BP 116/81; PULSE 86; RESP 18; TEMP 98.1; BMI 32.1
[2023-09-21] MEDS ORDERED: ACETAMINOPHEN 325 MG TABLET (FP) ONE (10:54)
[2023-09-21] MEDS ORDERED: IBUPROFEN 600 MG TABLET (FP) PO ONE (10:54)
[2023-09-21] MEDS: IBUPROFEN 600 MG TABLET (FP) PO ONE (11:10)
[2023-09-21] MEDS: ACETAMINOPHEN 325 MG TABLET (FP) PO ONE (11:11)
== END 2023-09-21 12:01 | disposition home or self-care (01) ==
LOC: JER 09:41
PROC: 2W3RX1Z Immobilization of Left Lower Leg using Splint (ICD-10-PCS; principal; 2023-09-21)
DX: M79.662 Pain in left lower leg (principal); M25.562 Pain in left knee; X50.0XXA Overexertion from strenuous movement or load, initial encounter
CPT/HCPCS: 99283-25

== ENCOUNTER 2023-10-09 04:25 | Day surgery (SDC) | payer OTHER ==
[2023-10-08 09:06] VITALS: BMI 31.9
[2023-10-09] MEDS ORDERED: TRIAMCINOLONE ACET 40MG/1ML VIAL ONE (07:00)
[2023-10-09] MEDS ORDERED: BUPIVACAINE HCL/PF 0.5% (5MG/ML) 10 ML VIAL ONE (07:00)
[2023-10-09] MEDS ORDERED: LIDOCAINE HCL/PF 1% SDV 5ML VIAL ONE (07:00)
[2023-10-09 09:38] VITALS: RESP 18
[2023-10-09] MEDS: LIDOCAINE 1% P/F 10 MG/ML VIAL INF ONE (10:35)
[2023-10-09] MEDS: BUPIVACAINE HCL/PF 0.5% (5MG/ML) 10 ML VIAL IJ ONE (10:35)
[2023-10-09] MEDS: TRIAMCINOLONE ACET 40MG/1ML VIAL IJ ONE (10:35)
[2023-10-09] MEDS: IOHEXOL 180 MG/1 ML ML IJ ONE (10:35)
[2023-10-09 12:08] VITALS: BP 110/72; PULSE 76; TEMP 97.8
[2023-10-09] MEDS ORDERED: ACETAMINOPHEN 500 MG TABLET (FP) PO PRN (13:26)
== END 2023-10-09 11:30 | disposition home or self-care (01) ==
LOC: JASU-SURG 04:25
PROVIDERS: ATTEND Pain Medicine Pain Medicine
PROC: 3E0U3BZ Introduction of Anesthetic Agent into Joints, Percutaneous Approach (ICD-10-PCS; 2023-10-09)
PROC: 3E0U33Z Introduction of Anti-inflammatory into Joints, Percutaneous Approach (ICD-10-PCS; principal; 2023-10-09 10:00)
DX: M53.3 Sacrococcygeal disorders, not elsewhere classified (principal)
CPT/HCPCS: 76000-TC-FY; 81025